=== PATIENT | male | born 1950 | race Two or more races ===

== ENCOUNTER 2025-01-09 01:11 | Inpatient (IN) | payer MEDICARE, OTHER ==
[2025-01-09] VITALS (11 sets, daily range): BP systolic 99–124; BP diastolic 42–65; TEMP 97.4–98.4; O2SAT 81–100
[~2025-01-09] VITALS: Ht 149.9 cm; Wt 50.8 kg
[2025-01-09] MEDS ORDERED: CEFTRIAXONE /D5W 50ML IVPB **ER PYXIS IV ONE (02:26)
[2025-01-09] MEDS ORDERED: AZITHROMYCIN 500MG/ D5W 250ML IVPB **ER PYXIS ONLY IV ONE (02:27)
[2025-01-09 02:29] LABS: BASOPHILS # (AUTO) 0.1 K/UL (0.0-0.2); BASOPHILS % (AUTO) 0.3 % (0.0-2.0); EOSINOPHILS # (AUTO) 0.6 K/uL (0.0-0.7); EOSINOPHILS % (AUTO) 3.7 % (0.0-7.0); HEMATOCRIT 28.3 % (36.7-47.1); HEMOGLOBIN 9.4 g/dL (12.5-16.3); LYMPHOCYTES # (AUTO) 0.8 K/uL (0.8-4.8); LYMPHOCYTES % (AUTO) 4.4 % (20.5-51.5); MEAN CORPUSCULAR HEMOGLOBIN 29.6 uug (23.8-33.4); MEAN CORPUSCULAR HGB CONC 33 g/dL (32.5-36.3); MEAN CORPUSCULAR VOLUME 89.1 fL (73.0-96.2); MONOCYTES # (AUTO) 0.5 K/uL (0.1-1.30); MONOCYTES % (AUTO) 2.8 % (0.0-11.0); NEUTROPHILS # (AUTO) 15.3 K/uL (1.8-8.9); NEUTROPHILS % (AUTO) 88.8 % (38.5-71.5); PLATELET COUNT (AUTO) 119 K/uL (152-348); RED BLOOD CELL COUNT(AUTO) 3.17 MIL/uL (4.06-5.63); RED CELL DISTRIBUTION WIDTH 17.7 % (12.1-16.2); WHITE BLOOD COUNT (AUTO) 17.3 K/uL (3.6-10.2)
[2025-01-09] MEDS: CEFTRIAXONE 1 G in IV DEXTROSE 5% 50 ML IV ONE (02:35)
[2025-01-09 02:36] LABS: DIFFERENTIAL COMMENT 1
[2025-01-09] MEDS: IPRATROPIUM BROMIDE 0.5 MG/2.5 ML NEBU NEB ONE (02:38)
[2025-01-09] MEDS: ALBUTEROL SULFATE 2.5 MG/3 ML NEBU IH ONE (02:38)
[2025-01-09 02:40] LABS: CALCIUM 8.2 mg/dL (8.5-10.1); CARBON DIOXIDE 27 mmol/L (21-32); CHLORIDE 111 mmol/L (98-107); CREATININE 1.5 mg/dL (0.6-1.3); GLUCOSE 153 mg/dL (74-106); POTASSIUM 4.5 mmol/L (3.5-5.1); SODIUM SERUM 146 mmol/L (136-145); UREA NITROGEN, BLOOD 34 mg/dL (7-18)
[2025-01-09] MEDS ORDERED: ALBUTEROL SULFATE 2.5 MG/3 ML NEBU ONE (02:43)
[2025-01-09] MEDS ORDERED: IPRATROPIUM BROMIDE 0.5 MG/2.5 ML NEBU ONE (02:43)
[2025-01-09 02:58] LABS: ALANINE AMINOTRANSFERASE 12 U/L (16-63); ALBUMIN 2.7 g/dL (3.4-5.0); ALKALINE PHOSPHATASE 137 U/L (50-136); ASPARTATE AMINOTRANSFERASE 8 U/L (15-37); BILIRUBIN,DIRECT 0.1 mg/dL (0.0-0.2); BILIRUBIN,TOTAL 0.3 mg/dL (0.2-1.0); NT-PRO BNP 4664 pg/mL (0-125); TOTAL PROTEIN, SERUM 5.6 g/dL (6.4-8.2)
[2025-01-09] MEDS: AZITHROMYCIN IV 500 MG in IV DEXTROSE 5% 250 ML IV ONE (03:07)
[2025-01-09] MEDS ORDERED: ENTA200T3 PEG (03:50)
[2025-01-09] MEDS ORDERED: CARB1TAB31 PO (03:50)
[2025-01-09] MEDS ORDERED: AMLO-212 PEG (03:50)
[2025-01-09] MEDS ORDERED: GABA300T25 PO (03:50)
[2025-01-09] MEDS ORDERED: SELE5CAP8 PEG (03:50)
[2025-01-09] MEDS ORDERED: ACETAMINOPHEN 325 MG TABLET GT PRN (04:30)
[2025-01-09] MEDS ORDERED: REMEDY ESSENTIAL ZINC PASTE 113 GM TP PRN (04:30)
[2025-01-09] MEDS ORDERED: ONDANSETRON 4 MG/2 ML VIAL IV PRN (04:30)
[2025-01-09 06:44] LABS: *BILIRUBIN,URIN NEGATIVE (NEGATIVE); *BLOOD, URINE NEGATIVE (NEGATIVE); *CLARITY,URINE CLEAR (CLEAR); *COLOR,URINE YELLOW (YELLOW); *KETONES,URINE NEGATIVE (NEGATIVE); *PROTEIN,URINE 2+ (NEGATIVE); *UROBILINOGEN,URINE 0.2 E.U./dl (NORMAL); LEUKOCYTE ESTERASE ,URINE NEGATIVE (NEGATIVE); NITRITE, URINE NEGATIVE (NEGATIVE); PH,URINE 5.5 (5.0-8.0); UGLUCOSE NEGATIVE (NEGATIVE)
[2025-01-09 07:08] LABS: MAGNESIUM 2.2 mg/dL (1.8-2.4); PHOSPHOROUS 3.6 mg/dL (2.5-4.9)
[2025-01-09 07:15] LABS: BACTERIA,URINE FEW /HPF (NONE SEEN); SQUAMOUS EPITHELIAL CELL,UR FEW /HPF (NONE SEEN)
[2025-01-09] MEDS ORDERED: SELEGILINE HCL PO SCH (09:00)
[2025-01-09] MEDS ORDERED: Medication Not On Formulary EA (Gabapentin (Gralise) 1 TAB) PO SCH (09:00)
[2025-01-09] MEDS ORDERED: CARBIDOPA/LEVODOPA 10-100MG TABLET GT SCH (09:00)
[2025-01-09] MEDS ORDERED: SELEGILINE HCL 5 MG TABLET GT SCH ×2 (09:00)
[2025-01-09] MEDS: AMLODIPINE 5 MG TABLET GT ONE (09:36)
[2025-01-09] MEDS: GUAIFENESIN/DEXTROMETHORPHAN 5 ML UDC GT PRN (12:57)
[2025-01-09] MEDS: GABAPENTIN 300 MG CAPSULE GT SCH (12:57)
[2025-01-09] MEDS ORDERED: ROTI1PAT TD (13:32)
[2025-01-09] MEDS ORDERED: FINA5TAB11 PEG (13:32)
[2025-01-09] MEDS ORDERED: CARB1TAB21 PEG (13:32)
[2025-01-09] MEDS: ENTACAPONE 200 MG TABLET GT SCH (13:53)
[2025-01-09] MEDS: CARBIDOPA/LEVODOPA 25-100MG TABLET GT SCH (13:53)
[2025-01-09] MEDS ORDERED: FOSF3PAC PEG (15:54)
[2025-01-09] MEDS ORDERED: TAMS-3 PO (15:55)
[2025-01-09] MEDS ORDERED: FERR325T24 PEG (15:56)
[2025-01-09] MEDS ORDERED: METH1TAB69 PEG (15:57)
[2025-01-09] MEDS ORDERED: OMEP40CA21 PEG (15:58)
[2025-01-09] MEDS ORDERED: ALBU2.5V13 NEB (15:59)
[2025-01-09] MEDS ORDERED: GABA300C PEG (16:00)
[2025-01-09] MEDS: AMLODIPINE 5 MG TABLET GT SCH (17:01)
[2025-01-09] MEDS: ALBUTEROL SULFATE 1.25 MG/3 ML NEBU NEB PRN (18:52)
[2025-01-09] MEDS: JEVITY 1.2 1000 ML LIQUID GT SCH (19:27)
[2025-01-09] MEDS ORDERED: PIPERACILLIN/TAZOBACTAM/D5W 50 ML IV ONE ×2 (20:49)
[2025-01-09] MEDS: ACIDOPHILUS/BULGARICUS CHEW TAB GT SCH (21:16)
[2025-01-09] MEDS: PIPERACILLIN SODIUM/TAZOBACTAM 3.375 G in IV DEXTROSE 5% 50 ML IV SCH (21:17)
[2025-01-09] MEDS ORDERED: PIPERACILLIN SODIUM/TAZOBACTAM 3.375 G in IV DEXTROSE 5% 50 ML IV SCH (22:00)
[2025-01-09] MEDS: BISACODYL 10 MG SUPP.RECT RC PRN (22:06)
[2025-01-09] MEDS ORDERED: DOXYCYCLINE HYCLATE IV 100 MG in IV DEXTROSE 5% 100 ML IV SCH (23:00)
[2025-01-10] VITALS (13 sets, daily range): BP systolic 120–134; BP diastolic 41–63; TEMP 97.7–98.4; O2SAT 90–99
[2025-01-10] MEDS ORDERED: CEFTRIAXONE 1 G in IV DEXTROSE 5% 50 ML IV SCH (02:00)
[2025-01-10] MEDS ORDERED: AZITHROMYCIN IV 500 MG in IV DEXTROSE 5% 250 ML IV SCH (03:00)
[2025-01-10 07:02] LABS: BASOPHILS # (AUTO) 0.1 K/UL (0.0-0.2); BASOPHILS % (AUTO) 0.4 % (0.0-2.0); EOSINOPHILS # (AUTO) 0.7 K/uL (0.0-0.7); EOSINOPHILS % (AUTO) 5.3 % (0.0-7.0); HEMATOCRIT 31.2 % (36.7-47.1); HEMOGLOBIN 10.5 g/dL (12.5-16.3); LYMPHOCYTES # (AUTO) 0.5 K/uL (0.8-4.8); LYMPHOCYTES % (AUTO) 3.8 % (20.5-51.5); MEAN CORPUSCULAR HEMOGLOBIN 30.1 uug (23.8-33.4); MEAN CORPUSCULAR HGB CONC 34 g/dL (32.5-36.3); MEAN CORPUSCULAR VOLUME 89.5 fL (73.0-96.2); MONOCYTES # (AUTO) 0.6 K/uL (0.1-1.30); MONOCYTES % (AUTO) 4.6 % (0.0-11.0); NEUTROPHILS # (AUTO) 11.7 K/uL (1.8-8.9); NEUTROPHILS % (AUTO) 85.9 % (38.5-71.5); PLATELET COUNT (AUTO) 153 K/uL (152-348); RED BLOOD CELL COUNT(AUTO) 3.49 MIL/uL (4.06-5.63); RED CELL DISTRIBUTION WIDTH 17.8 % (12.1-16.2); WHITE BLOOD COUNT (AUTO) 13.6 K/uL (3.6-10.2)
[2025-01-10 07:23] LABS: DIFFERENTIAL COMMENT 1
[2025-01-10 07:30] LABS: CALCIUM 8.3 mg/dL (8.5-10.1); CARBON DIOXIDE 27 mmol/L (21-32); CHLORIDE 107 mmol/L (98-107); CREATININE 1.2 mg/dL (0.6-1.3); GLUCOSE 124 mg/dL (74-106); POTASSIUM 4.8 mmol/L (3.5-5.1); SODIUM SERUM 143 mmol/L (136-145); UREA NITROGEN, BLOOD 29 mg/dL (7-18)
[2025-01-10] MEDS: FINASTERIDE 5 MG TABLET PO SCH (09:08)
[2025-01-10] MEDS: GABAPENTIN 300 MG CAPSULE GT SCH (09:08)
[2025-01-10] MEDS: [UNRECOGNIZED DRUG - OTHER] TOP SCH (09:09)
[2025-01-10] MEDS: ROTIGOTINE TOP SCH (09:09)
[2025-01-10] MEDS: [UNRECOGNIZED DRUG - OTHER] GT SCH (12:21)
[2025-01-10] MEDS: SELEGILINE 5 MG GT SCH (12:21)
[2025-01-10 13:02] LABS: BAND % (MANUAL) 3 % (0-10); EOSINOPHILS % (MANUAL) 9 % (0-8); LYMPHOCYTES % (MANUAL) 5 % (20-40); MONOCYTES % (MANUAL) 7 % (2-10); NEUTROPHILS % (MANUAL) 76 % (42-75)
[2025-01-10 13:03] LABS: ANISOCYTOSIS 1+; PLATELET ESTIMATE ADEQUATE
[2025-01-10] MEDS: PIPERACILLIN SODIUM/TAZOBACTAM 3.375 G in IV DEXTROSE 5% 100 ML IV SCH (13:20)
[2025-01-10] MEDS: IPRATROPIUM BROMIDE 0.5 MG/2.5 ML NEBU NEB SCH (15:31)
[2025-01-10] MEDS: ALBUTEROL SULFATE 2.5 MG/ 0.5 ML NEBU NEB SCH (15:32)
[2025-01-10] MEDS: MIRALAX 17 GM POWD.PACK PO SCH (22:40)
[2025-01-11] VITALS (14 sets, daily range): BP systolic 98–135; BP diastolic 45–71; TEMP 97.5–98.2; O2SAT 92–100
[2025-01-11] MEDS: JEVITY 1.2 1000 ML LIQUID GT PRN (05:50)
[2025-01-11 07:26] LABS: BASOPHILS # (AUTO) 0.1 K/UL (0.0-0.2); BASOPHILS % (AUTO) 0.5 % (0.0-2.0); EOSINOPHILS # (AUTO) 0.8 K/uL (0.0-0.7); EOSINOPHILS % (AUTO) 7.3 % (0.0-7.0); HEMATOCRIT 31.2 % (36.7-47.1); HEMOGLOBIN 10.4 g/dL (12.5-16.3); LYMPHOCYTES # (AUTO) 0.5 K/uL (0.8-4.8); MEAN CORPUSCULAR HEMOGLOBIN 29.8 uug (23.8-33.4); MEAN CORPUSCULAR HGB CONC 33 g/dL (32.5-36.3); MEAN CORPUSCULAR VOLUME 89.5 fL (73.0-96.2); MONOCYTES # (AUTO) 0.6 K/uL (0.1-1.30); MONOCYTES % (AUTO) 5.8 % (0.0-11.0); NEUTROPHILS # (AUTO) 8.9 K/uL (1.8-8.9); NEUTROPHILS % (AUTO) 81.4 % (38.5-71.5); PLATELET COUNT (AUTO) 141 K/uL (152-348); RED BLOOD CELL COUNT(AUTO) 3.48 MIL/uL (4.06-5.63); RED CELL DISTRIBUTION WIDTH 17.8 % (12.1-16.2); WHITE BLOOD COUNT (AUTO) 10.9 K/uL (3.6-10.2)
[2025-01-11 07:41] LABS: DIFFERENTIAL COMMENT 1
[2025-01-11 07:45] LABS: CALCIUM 8.9 mg/dL (8.5-10.1); CARBON DIOXIDE 28 mmol/L (21-32); CHLORIDE 105 mmol/L (98-107); CREATININE 1.1 mg/dL (0.6-1.3); GLUCOSE 124 mg/dL (74-106); MAGNESIUM 2.3 mg/dL (1.8-2.4); PHOSPHOROUS 4.5 mg/dL (2.5-4.9); POTASSIUM 4.9 mmol/L (3.5-5.1); SODIUM SERUM 142 mmol/L (136-145); UREA NITROGEN, BLOOD 26 mg/dL (7-18)
[2025-01-11] MEDS ORDERED: TAMSULOSIN HCL 0.4 MG CAP.SR.24H PO SCH (09:00)
[2025-01-11 11:44] LABS: BAND % (MANUAL) 3 % (0-10); EOSINOPHILS % (MANUAL) 11 % (0-8); LYMPHOCYTES % (MANUAL) 4 % (20-40); MONOCYTES % (MANUAL) 7 % (2-10); NEUTROPHILS % (MANUAL) 75 % (42-75)
[2025-01-11 11:45] LABS: ANISOCYTOSIS 1+; PLATELET ESTIMATE DECREASED
[2025-01-12] VITALS (13 sets, daily range): BP systolic 115–135; BP diastolic 54–65; TEMP 97.6–98.3; O2SAT 95–98
[2025-01-12 07:37] LABS: BASOPHILS % (AUTO) 0.4 % (0.0-2.0); EOSINOPHILS # (AUTO) 0.8 K/uL (0.0-0.7); EOSINOPHILS % (AUTO) 11.1 % (0.0-7.0); HEMATOCRIT 30.1 % (36.7-47.1); HEMOGLOBIN 10.1 g/dL (12.5-16.3); LYMPHOCYTES # (AUTO) 0.7 K/uL (0.8-4.8); LYMPHOCYTES % (AUTO) 9.2 % (20.5-51.5); MEAN CORPUSCULAR HEMOGLOBIN 30.1 uug (23.8-33.4); MEAN CORPUSCULAR HGB CONC 34 g/dL (32.5-36.3); MEAN CORPUSCULAR VOLUME 89.5 fL (73.0-96.2); MONOCYTES # (AUTO) 0.5 K/uL (0.1-1.30); MONOCYTES % (AUTO) 6.6 % (0.0-11.0); NEUTROPHILS # (AUTO) 5.5 K/uL (1.8-8.9); NEUTROPHILS % (AUTO) 72.7 % (38.5-71.5); PLATELET COUNT (AUTO) 162 K/uL (152-348); RED BLOOD CELL COUNT(AUTO) 3.37 MIL/uL (4.06-5.63); RED CELL DISTRIBUTION WIDTH 17.5 % (12.1-16.2); WHITE BLOOD COUNT (AUTO) 7.6 K/uL (3.6-10.2)
[2025-01-12 07:46] LABS: ALANINE AMINOTRANSFERASE < 6 U/L (16-63); ALBUMIN 2.6 g/dL (3.4-5.0); ALKALINE PHOSPHATASE 134 U/L (50-136); ASPARTATE AMINOTRANSFERASE 11 U/L (15-37); BILIRUBIN,TOTAL 0.5 mg/dL (0.2-1.0); CARBON DIOXIDE 27 mmol/L (21-32); CHLORIDE 105 mmol/L (98-107); CREATININE 1.2 mg/dL (0.6-1.3); GLUCOSE 127 mg/dL (74-106); PHOSPHOROUS 4.3 mg/dL (2.5-4.9); POTASSIUM 5.2 mmol/L (3.5-5.1); SODIUM SERUM 139 mmol/L (136-145); TOTAL PROTEIN, SERUM 5.7 g/dL (6.4-8.2); UREA NITROGEN, BLOOD 20 mg/dL (7-18)
[2025-01-12 07:47] LABS: DIFFERENTIAL COMMENT 1
[2025-01-13] VITALS: BP 114/51; TEMP 97.6; O2SAT 95
[2025-01-13 04:00] VITALS: BP 127/64; TEMP 97.8; O2SAT 94
[2025-01-13 07:28] VITALS: O2SAT 94
[2025-01-13 07:42] VITALS: O2SAT 98
[2025-01-13 07:45] VITALS: BP 91/58; TEMP 97.6; O2SAT 97
[2025-01-13 10:32] VITALS: BP 127/68; TEMP 97.8; O2SAT 99
[2025-01-13] MEDS ORDERED: ACID1TAB4 GT (12:40)
[2025-01-13] MEDS ORDERED: BISA10SU12 RC (12:40)
[2025-01-13] MEDS ORDERED: AMOX500T2 GT (12:40)
[2025-01-13] MEDS ORDERED: FURO20TA4 GT (12:43)
== END 2025-01-13 14:50 | disposition home health service (06) | DRG 871 ==
LOC: ER 01:19 → TELE3 05:27 → MEDSURG3 01-13 10:42
PROVIDERS: ATTEND Internal Medicine
PROC: 05HC33Z Insertion of Infusion Device into Left Basilic Vein, Percutaneous Approach (ICD-10-PCS; principal; 2025-01-10)
DX: A41.9 Sepsis, unspecified organism (principal); G92.8 Other toxic encephalopathy; J18.9 Pneumonia, unspecified organism; J96.01 Acute respiratory failure with hypoxia; J69.0 Pneumonitis due to inhalation of food and vomit; I50.23 Acute on chronic systolic (congestive) heart failure; N17.0 Acute kidney failure with tubular necrosis; C78.7 Secondary malignant neoplasm of liver and intrahepatic bile duct; C18.9 Malignant neoplasm of colon, unspecified; R64 Cachexia; E44.0 Moderate protein-calorie malnutrition; D68.59 Other primary thrombophilia; D50.0 Iron deficiency anemia secondary to blood loss (chronic); I11.0 Hypertensive heart disease with heart failure; F02.80 Dementia in other diseases classified elsewhere, unspecified severity, without behavioral disturbance, psychotic disturbance, mood disturbance, and anxiety; G20.A1 Parkinson's disease without dyskinesia, without mention of fluctuations; I08.0 Rheumatic disorders of both mitral and aortic valves; Z79.899 Other long term (current) drug therapy; Z93.1 Gastrostomy status; R62.7 Adult failure to thrive; K40.90 Unilateral inguinal hernia, without obstruction or gangrene, not specified as recurrent; E86.0 Dehydration; K59.00 Constipation, unspecified; Z96.82 Presence of neurostimulator; Z95.0 Presence of cardiac pacemaker; N40.0 Benign prostatic hyperplasia without lower urinary tract symptoms; I25.10 Atherosclerotic heart disease of native coronary artery without angina pectoris; R32 Unspecified urinary incontinence
CPT/HCPCS: 36415; 71045; 71250; 74018; 76770; 83605; 83735; 84100; 84484; 85025; 87040; 93005; 93307; 94640; 94760; A6209; A6213; C1758; G0378; J0456; J0696; J2543; J3490; J3590

== ENCOUNTER 2025-08-17 23:41 | Inpatient (IN) | payer MEDICARE, OTHER ==
[~2025-08-17] VITALS: Ht 162.6 cm; Wt 45.8 kg
[2025-08-17] MEDS: IPRATROPIUM BROMIDE 0.5 MG/2.5 ML NEBU NEB ONE (23:30)
[2025-08-17] MEDS: ALBUTEROL SULFATE 2.5 MG/3 ML NEBU NEB ONE (23:30)
[~2025-08-17 23:41] MED LIST: ACID1TAB4 GT; AMLO-212 PEG; AMOX500T2 GT; BISA10SU12 RC; CARB1TAB33 PEG; ENTA200T4 PEG; FINA5TAB11 PEG; FOSF3PAC PEG; FURO20TA4 GT; GABA300C PEG; METH1TAB69 PEG; OMEP40CA21 PEG; ROTI1PAT TD; SELE5CAP8 PEG; TAMS0.4C PO
[2025-08-17] MEDS ORDERED: IPRATROPIUM BROMIDE 0.5 MG/2.5 ML NEBU ONE (23:59)
[2025-08-17] MEDS ORDERED: ALBUTEROL SULFATE 2.5 MG/3 ML NEBU ONE (23:59)
[2025-08-18] VITALS (78 sets, daily range): BP systolic 85–166; BP diastolic 48–98; TEMP 97.1–97.7; O2SAT 99–100
[2025-08-18] MEDS ORDERED: PROPOFOL 100 ML ONE (00:13)
[2025-08-18] MEDS ORDERED: ETOMIDATE 20 MG/10 ML VIAL ONE (00:13)
[2025-08-18] MEDS ORDERED: SUCCINYLCHOLINE CHLORIDE 200 MG/10 ML VIAL ONE (00:13)
[2025-08-18] MEDS: ETOMIDATE 20 MG/10 ML VIAL IV ONE (00:14)
[2025-08-18] MEDS: SUCCINYLCHOLINE CHLORIDE 200 MG/10 ML VIAL IV ONE (00:15)
[2025-08-18 00:24] LABS: PLATELET COUNT (AUTO) 207 K/uL (152-348); RED BLOOD CELL COUNT(AUTO) 3.06 MIL/uL (4.06-5.63); RED CELL DISTRIBUTION WIDTH 15.8 % (12.1-16.2); WHITE BLOOD COUNT (AUTO) 6.0 K/uL (3.6-10.2)
[2025-08-18 00:30] LABS: CREATININE 0.8 mg/dL (0.6-1.3); SODIUM SERUM 140 mmol/L (136-145); UREA NITROGEN, BLOOD 30 mg/dL (7-18)
[2025-08-18 00:36] LABS: ASPARTATE AMINOTRANSFERASE < 5 U/L (15-37); TOTAL PROTEIN, SERUM 6.0 g/dL (6.4-8.2)
[2025-08-18] MEDS: IV NORMAL SALINE 1000 ML BAG IV ONE (00:42)
[2025-08-18] MEDS: PROPOFOL 100 ML IV ONE (01:06)
[2025-08-18] MEDS ORDERED: VANCOMYCIN IV 200 ML ONE (01:09)
[2025-08-18] MEDS ORDERED: PANTOPRAZOLE SODIUM 40 MG VIAL ONE (01:09)
[2025-08-18] MEDS ORDERED: CEFTRIAXONE /D5W 50ML IVPB **ER PYXIS IV ONE (01:09)
[2025-08-18 01:10] LABS: *BILIRUBIN,URIN NEGATIVE (NEGATIVE); *CLARITY,URINE SLIGHTLY CLOUDY (CLEAR); *KETONES,URINE NEGATIVE (NEGATIVE); *PROTEIN,URINE 2+ (NEGATIVE); *UROBILINOGEN,URINE 0.2 E.U./dl (NORMAL); LEUKOCYTE ESTERASE ,URINE 1+ (NEGATIVE); NITRITE, URINE NEGATIVE (NEGATIVE); UGLUCOSE NEGATIVE (NEGATIVE)
[2025-08-18 01:12] LABS: *BLOOD, URINE TRACE (NEGATIVE); *COLOR,URINE DARK YELLOW (YELLOW)
[2025-08-18] MEDS: PANTOPRAZOLE SODIUM IV 80 MG in IV DEXTROSE 5% 100 ML IV ONE (01:27)
[2025-08-18] MEDS: VANCOMYCIN IV 1,000 MG in IV DEXTROSE 5% 250 ML IV ONE (01:27)
[2025-08-18] MEDS ORDERED: IOHEXOL 350 100 ML INFUS..BTL ONE (01:29)
[2025-08-18 01:55] LABS: SQUAMOUS EPITHELIAL CELL,UR FEW /HPF (NONE SEEN); YEAST,URINE FEW /HPF (NONE SEEN)
[2025-08-18] MEDS ORDERED: NOREPINEPHRINE 8MG/NS 250ML 250 ML IV ONE (02:12)
[2025-08-18] MEDS: NOREPINEPHRINE 8MG/NS 250ML 250 ML IV PRN ×2 (02:56→14:36)
[2025-08-18] MEDS ORDERED: ACETAMINOPHEN 325 MG TABLET PO PRN (03:30)
[2025-08-18] MEDS ORDERED: ONDANSETRON 4 MG/2 ML VIAL IV PRN (03:30)
[2025-08-18] MEDS: IV NS 1000 ML 1,000 ML IV PRN (03:58)
[2025-08-18 04:49] LABS: PLATELET COUNT (AUTO) 181 K/uL (152-348); RED BLOOD CELL COUNT(AUTO) 3.39 MIL/uL (4.06-5.63); RED CELL DISTRIBUTION WIDTH 16.3 % (12.1-16.2); WHITE BLOOD COUNT (AUTO) 16.7 K/uL (3.6-10.2)
[2025-08-18] MEDS: PROPOFOL 100 ML IV PRN (04:53)
[2025-08-18 05:00] LABS: CREATININE 0.9 mg/dL (0.6-1.3); SODIUM SERUM 137 mmol/L (136-145); UREA NITROGEN, BLOOD 29 mg/dL (7-18)
[2025-08-18 06:40] LABS: LYMPHOCYTES % (MANUAL) 4 % (20-40); MONOCYTES % (MANUAL) 6 % (2-10); NEUTROPHILS % (MANUAL) 89 % (42-75)
[2025-08-18 06:41] LABS: EOSINOPHILS % (MANUAL) 1 % (0-8); PLATELET ESTIMATE ADEQUATE
[2025-08-18] MEDS: PANTOPRAZOLE SODIUM 40 MG VIAL IV SCH (08:39)
[2025-08-18] MEDS: ENOXAPARIN SODIUM 40 MG/0.4 ML DISP.SYRIN SQ SCH (08:50)
[2025-08-18] MEDS: HYDROCORTISONE SOD SUCCINATE 100 MG/2 ML VIAL IV SCH (08:51)
[2025-08-18] MEDS ORDERED: FERR325T24 PEG (13:14)
[2025-08-18] MEDS ORDERED: CHOL100062 PEG (13:15)
[2025-08-18] MEDS ORDERED: [UNRECOGNIZED DRUG - CODE] TP (13:17)
[2025-08-18] MEDS ORDERED: IPRA42SP BNOSTRILS (13:17)
[2025-08-18] MEDS: ENTACAPONE 200 MG TABLET PEG SCH (13:42)
[2025-08-18] MEDS: CARBIDOPA/LEVODOPA 25-100MG TABLET PEG SCH (13:43)
[2025-08-18 14:56] LABS: HIV-1/2 ANTIBODY NON REACTIVE (NONREACTIVE)
[2025-08-18] MEDS ORDERED: SELEGILINE HCL 5 MG TABLET PEG SCH (17:00)
[2025-08-18] MEDS: VANCOMYCIN HCL 750 MG in IV DEXTROSE 5% 250 ML IV SCH (20:04)
[2025-08-18 20:28] LABS: ABG BASE EXCESS 0.8 mmol/L (-2.0-3.0); ABG HCO3 26.1 mmol/L (21.0-28.0); ABG PCO2 45.1 mmHg (35.0-48.0); ABG PH 7.381 (7.350-7.450); ABG PO2 85.2 mmHg (83.0-108.0); ABG SITE RIGHT FEMORAL; ABG TOTAL HEMOGLOBIN 9.1 G/dL (13.5-17.5); AaDO2 96.2 mmHg; FIO2 100.0 %; PEEP,BG 5.0 cmH20; SET RATE, BG 20.0; VT, ABG 450 mL
[2025-08-18 20:28] LABS: ABG BASE EXCESS -2.6 mmol/L (-2.0-3.0); ABG HCO3 20.9 mmol/L (21.0-28.0); ABG PCO2 31.5 mmHg (35.0-48.0); ABG PH 7.440 (7.350-7.450); ABG PO2 410.7 mmHg (83.0-108.0); ABG SITE LEFT FEMORAL; ABG TOTAL HEMOGLOBIN 10.3 G/dL (13.5-17.5); AaDO2 99.8 mmHg; FIO2 100.0 %; PEEP,BG 5.0 cmH20; SET RATE, BG 20.0; VT, ABG 450 mL
[2025-08-18] MEDS: CEFEPIME HCL 2 GM in IV DEXTROSE 5% 100 ML IV SCH (21:35)
[2025-08-19] VITALS (91 sets, daily range): BP systolic 85–174; BP diastolic 52–114; TEMP 97–98.3; O2SAT 98–100
[2025-08-19] MEDS: DOPamine IV DRIP 400 MG/250ML 250 ML IV PRN (01:34)
[2025-08-19 05:31] LABS: ABG BASE EXCESS -2.3 mmol/L (-2.0-3.0); ABG HCO3 22.0 mmol/L (21.0-28.0); ABG PCO2 36.1 mmHg (35.0-48.0); ABG PH 7.403 (7.350-7.450); ABG PO2 171.0 mmHg (83.0-108.0); ABG SITE RIGHT RADIAL; ABG TOTAL HEMOGLOBIN 10.8 G/dL (13.5-17.5); AaDO2 99.2 mmHg; FIO2 40.0 %; PEEP,BG 5.0 cmH20; SET RATE, BG 20.0; VT, ABG 450 mL
[2025-08-19 05:43] LABS: PLATELET COUNT (AUTO) 220 K/uL (152-348); RED BLOOD CELL COUNT(AUTO) 3.47 MIL/uL (4.06-5.63); RED CELL DISTRIBUTION WIDTH 16.5 % (12.1-16.2); WHITE BLOOD COUNT (AUTO) 13.2 K/uL (3.6-10.2)
[2025-08-19 05:53] LABS: CREATININE 0.7 mg/dL (0.6-1.3); SODIUM SERUM 138 mmol/L (136-145); UREA NITROGEN, BLOOD 24 mg/dL (7-18)
[2025-08-19] MEDS: TAMSULOSIN HCL 0.4 MG CAP.SR.24H PO SCH (08:25)
[2025-08-19] MEDS: FINASTERIDE 5 MG TABLET PEG SCH (08:25)
[2025-08-19] MEDS: IPRATROPIUM BROMIDE 0.5 MG/2.5 ML NEBU NEB SCH (14:09)
[2025-08-19] MEDS: ALBUTEROL SULFATE 2.5 MG/3 ML NEBU NEB SCH (14:09)
[2025-08-20] VITALS (76 sets, daily range): BP systolic 129–161; BP diastolic 52–71; TEMP 96.6–98.4; O2SAT 98–100
[2025-08-20 05:15] LABS: PLATELET COUNT (AUTO) 299 K/uL (152-348); RED BLOOD CELL COUNT(AUTO) 3.60 MIL/uL (4.06-5.63); RED CELL DISTRIBUTION WIDTH 15.8 % (12.1-16.2); WHITE BLOOD COUNT (AUTO) 12.8 K/uL (3.6-10.2)
[2025-08-20 05:39] LABS: CREATININE 0.8 mg/dL (0.6-1.3); SODIUM SERUM 141 mmol/L (136-145); UREA NITROGEN, BLOOD 24 mg/dL (7-18)
[2025-08-20 08:06] LABS: ABG BASE EXCESS -1.3 mmol/L (-2.0-3.0); ABG HCO3 23.5 mmol/L (21.0-28.0); ABG PCO2 39.6 mmHg (35.0-48.0); ABG PH 7.391 (7.350-7.450); ABG PO2 122.2 mmHg (83.0-108.0); ABG SITE RIGHT RADIAL; ABG TOTAL HEMOGLOBIN 11.5 G/dL (13.5-17.5); AaDO2 98.4 mmHg; FIO2 28.0 %
[2025-08-20 22:07] LABS: HEPATITIS B SURFACE AG Negative (Negative)
[2025-08-21] VITALS (99 sets, daily range): BP systolic 65–183; BP diastolic 46–82; TEMP 97–101.6; O2SAT 94–100
[2025-08-21 05:13] LABS: PLATELET COUNT (AUTO) 265 K/uL (152-348); RED BLOOD CELL COUNT(AUTO) 3.56 MIL/uL (4.06-5.63); RED CELL DISTRIBUTION WIDTH 15.9 % (12.1-16.2); WHITE BLOOD COUNT (AUTO) 10.7 K/uL (3.6-10.2)
[2025-08-21 05:35] LABS: CREATININE 0.7 mg/dL (0.6-1.3); SODIUM SERUM 140 mmol/L (136-145); UREA NITROGEN, BLOOD 19 mg/dL (7-18)
[2025-08-21 06:27] LABS: ABG BASE EXCESS -0.9 mmol/L (-2.0-3.0); ABG HCO3 23.7 mmol/L (21.0-28.0); ABG PCO2 39.2 mmHg (35.0-48.0); ABG PH 7.400 (7.350-7.450); ABG PO2 107.0 mmHg (83.0-108.0); ABG SITE RIGHT RADIAL; ABG TOTAL HEMOGLOBIN 11.8 G/dL (13.5-17.5); AaDO2 97.9 mmHg; CPAP,BG 5 cmH20; FIO2 28.0 %; PEEP,BG 5.0 cmH20
[2025-08-21] MEDS ORDERED: DC PROPOFOL ONCE EXTUBATED XX PRN (07:50)
[2025-08-21] MEDS: NOREPINEPHRINE 8MG/NS 250ML 250 ML IV PRN (09:34)
[2025-08-21] MEDS ORDERED: ACETYLCYSTEINE 10% 4ML VIAL NEB SCH (23:30)
[2025-08-22] VITALS (58 sets, daily range): BP systolic 107–166; BP diastolic 57–98; TEMP 97.5–98.2; O2SAT 94–100
[2025-08-22 05:26] LABS: ABG BASE EXCESS 0.6 mmol/L (-2.0-3.0); ABG HCO3 23.7 mmol/L (21.0-28.0); ABG PCO2 32.6 mmHg (35.0-48.0); ABG PH 7.480 (7.350-7.450); ABG PO2 81.2 mmHg (83.0-108.0); ABG SITE RIGHT RADIAL; ABG TOTAL HEMOGLOBIN 10.5 G/dL (13.5-17.5); AaDO2 96.8 mmHg; FIO2 21.0 %; FLOW, BLOOD GAS 0.00 L/min (0.00-30.00)
[2025-08-22 05:30] LABS: PLATELET COUNT (AUTO) 204 K/uL (152-348); RED BLOOD CELL COUNT(AUTO) 3.14 MIL/uL (4.06-5.63); RED CELL DISTRIBUTION WIDTH 15.9 % (12.1-16.2); WHITE BLOOD COUNT (AUTO) 5.7 K/uL (3.6-10.2)
[2025-08-22 05:45] LABS: CREATININE 0.6 mg/dL (0.6-1.3); SODIUM SERUM 144 mmol/L (136-145); UREA NITROGEN, BLOOD 23 mg/dL (7-18)
[2025-08-22] MEDS: HYDROCORTISONE SOD SUCCINATE 100 MG/2 ML VIAL IV SCH (09:13)
[2025-08-22] MEDS: POTASSIUM CHLORIDE 50 ML IV SCH (09:15)
[2025-08-22] MEDS: CEFEPIME (MAXEPIME) 1 G in IV DEXTROSE 5% 50 ML IV SCH (14:22)
[2025-08-22] MEDS: JEVITY 1.2 1000 ML LIQUID GT PRN (19:50)
[2025-08-22] MEDS: ACETYLCYSTEINE 20% 800 MG/4 ML VIAL NEB SCH (21:28)
[2025-08-22] MEDS: MAGNESIUM HYDROXIDE 30 ML LIQUID UDC PO PRN (23:40)
[2025-08-23] VITALS (38 sets, daily range): BP systolic 130–167; BP diastolic 63–77; TEMP 97.6–98.4; O2SAT 96–100
[2025-08-23 04:34] LABS: PLATELET COUNT (AUTO) 190 K/uL (152-348); RED BLOOD CELL COUNT(AUTO) 3.07 MIL/uL (4.06-5.63); RED CELL DISTRIBUTION WIDTH 15.7 % (12.1-16.2); WHITE BLOOD COUNT (AUTO) 4.3 K/uL (3.6-10.2)
[2025-08-23 04:46] LABS: CREATININE 0.7 mg/dL (0.6-1.3); SODIUM SERUM 150 mmol/L (136-145); UREA NITROGEN, BLOOD 24 mg/dL (7-18)
[2025-08-23] MEDS: POTASSIUM CHLORIDE 20 MEQ POWDER PACKET GT SCH (09:06)
[2025-08-23 11:07] LABS: ADENOVIRUS Not Detected (Not Detected); CORONAVIRUS 229E Not Detected (Not Detected); CORONAVIRUS HKU1 Not Detected (Not Detected); CORONAVIRUS NL63 Not Detected (Not Detected); CORONAVIRUS OC43 Not Detected (Not Detected); NP BORDETELLA PERTUSIS Not Detected (Not Detected); NP CHLAMYDOPHILA PNEUMONIAE Not Detected (Not Detected); NP HUMAN METAPNEUMOVIRUS Not Detected (Not Detected); NP HUMAN RHINO/ENTERO VIRUS Not Detected (Not Detected); NP INFLUENZA A Not Detected (Not Detected); NP INFLUENZA A/H1 Not Detected (Not Detected); NP INFLUENZA A/H1-2009 Not Detected (Not Detected); NP INFLUENZA A/H3 Not Detected (Not Detected); NP INFLUENZA B Not Detected (Not Detected); NP MYCOPLASMA PNEUMONIAE Not Detected (Not Detected); NP PARAINFLUENZA 1 Not Detected (Not Detected); NP PARAINFLUENZA 2 Not Detected (Not Detected); NP PARAINFLUENZA 3 Not Detected (Not Detected); NP PARAINFLUENZA 4 Not Detected (Not Detected); NP RESPIRATORY SYNCYTIAL VIRUS Not Detected (Not Detected)
[2025-08-23] MEDS: NEUTRA PHOS PACKET PO ONE (11:48)
[2025-08-23] MEDS: IV 1/2NS 1000 ML 1,000 ML IV PRN (13:57)
[2025-08-23] MEDS ORDERED: MAGNESIUM HYDROXIDE 30 ML LIQUID UDC PEG PRN (15:33)
[2025-08-23] MEDS ORDERED: ACETAMINOPHEN 325 MG TABLET PEG PRN (15:33)
[2025-08-24] VITALS (16 sets, daily range): BP systolic 138–172; BP diastolic 52–76; TEMP 97.4–97.8; O2SAT 94–100
[2025-08-24 07:19] LABS: PLATELET COUNT (AUTO) 204 K/uL (152-348); RED BLOOD CELL COUNT(AUTO) 3.36 MIL/uL (4.06-5.63); RED CELL DISTRIBUTION WIDTH 16.2 % (12.1-16.2); WHITE BLOOD COUNT (AUTO) 4.8 K/uL (3.6-10.2)
[2025-08-24 07:21] LABS: CREATININE 0.6 mg/dL (0.6-1.3); SODIUM SERUM 146 mmol/L (136-145); UREA NITROGEN, BLOOD 23 mg/dL (7-18)
[2025-08-24] MEDS: LOSARTAN POTASSIUM 50 MG TABLET PO SCH (08:21)
[2025-08-24] MEDS: PANTOPRAZOLE ORAL SUSPENSION 40 MG SUSPDR.PKT GT SCH (17:13)
[2025-08-24] MEDS: NEUTRA PHOS PACKET GT ONE (17:16)
[2025-08-24] MEDS: HYDROCORTISONE SOD SUCCINATE 100 MG/2 ML VIAL IV SCH (20:47)
[2025-08-25] VITALS (13 sets, daily range): BP systolic 135–155; BP diastolic 53–93; TEMP 97.6–97.9; O2SAT 97–100
[2025-08-25 07:02] LABS: PLATELET COUNT (AUTO) 188 K/uL (152-348); RED BLOOD CELL COUNT(AUTO) 2.95 MIL/uL (4.06-5.63); RED CELL DISTRIBUTION WIDTH 16.0 % (12.1-16.2); WHITE BLOOD COUNT (AUTO) 4.4 K/uL (3.6-10.2)
[2025-08-25 07:16] LABS: CREATININE 0.5 mg/dL (0.6-1.3); SODIUM SERUM 141 mmol/L (136-145); UREA NITROGEN, BLOOD 22 mg/dL (7-18)
[2025-08-25 09:06] LABS: LYMPHOCYTES % (MANUAL) 17 % (20-40); MONOCYTES % (MANUAL) 8 % (2-10); NEUTROPHILS % (MANUAL) 74 % (42-75)
[2025-08-25 09:07] LABS: EOSINOPHILS % (MANUAL) 1 % (0-8); PLATELET ESTIMATE ADEQUATE
[2025-08-25] MEDS: ENOXAPARIN SODIUM 40 MG/0.4 ML DISP.SYRIN SQ SCH (10:24)
[2025-08-25] MEDS: POTASSIUM CHLORIDE 20 MEQ POWDER PACKET NG ONE (12:30)
[2025-08-25] MEDS: NEUTRA PHOS PACKET GT ONE (17:02)
[2025-08-26] VITALS (12 sets, daily range): BP systolic 98–144; BP diastolic 50–64; TEMP 97.5–98.5; O2SAT 97–100
[2025-08-26 07:27] LABS: PLATELET COUNT (AUTO) 200 K/uL (152-348); RED BLOOD CELL COUNT(AUTO) 3.24 MIL/uL (4.06-5.63); RED CELL DISTRIBUTION WIDTH 16.2 % (12.1-16.2); WHITE BLOOD COUNT (AUTO) 5.1 K/uL (3.6-10.2)
[2025-08-26 07:50] LABS: CREATININE 0.5 mg/dL (0.6-1.3); SODIUM SERUM 141 mmol/L (136-145); UREA NITROGEN, BLOOD 20 mg/dL (7-18)
[2025-08-26] MEDS: LOSARTAN POTASSIUM 50 MG TABLET GT SCH (08:53)
[2025-08-26] MEDS: FUROSEMIDE 40 MG/4 ML VIAL IV ONE ×2 (09:45→18:21)
[2025-08-27] VITALS (12 sets, daily range): BP systolic 124–151; BP diastolic 57–78; TEMP 97.4–98.1; O2SAT 96–100
[2025-08-27 20:16] LABS: *BILIRUBIN,URIN NEGATIVE (NEGATIVE); *BLOOD, URINE NEGATIVE (NEGATIVE); *CLARITY,URINE CLOUDY (CLEAR); *COLOR,URINE YELLOW (YELLOW); *KETONES,URINE TRACE (NEGATIVE); *PROTEIN,URINE 2+ (NEGATIVE); *UROBILINOGEN,URINE 0.2 E.U./dl (NORMAL); LEUKOCYTE ESTERASE ,URINE 1+ (NEGATIVE); NITRITE, URINE NEGATIVE (NEGATIVE); UGLUCOSE NEGATIVE (NEGATIVE)
[2025-08-27 20:54] LABS: CALCIUM OXALATE CRYSTALS,UR MANY /HPF (NONE SEEN); SQUAMOUS EPITHELIAL CELL,UR FEW /HPF (NONE SEEN); YEAST,URINE MANY /HPF (NONE SEEN)
[2025-08-28] MEDS ORDERED: HYDROCORTISONE SOD SUCCINATE 100 MG/2 ML VIAL IV SCH (09:00)
== END 2025-08-27 21:15 | DRG 871 ==
LOC: ER 23:41 → CCU 08-18 01:41 → TELE3 08-23 18:00 → MEDSURG3 08-24 10:25
PROVIDERS: ADMIT Nurse Practitioner Acute Care; ATTEND Internal Medicine
PROC: 5A1945Z Respiratory Ventilation, 24-96 Consecutive Hours (ICD-10-PCS; principal; 2025-08-18)
PROC: 0BH17EZ Insertion of Endotracheal Airway into Trachea, Via Natural or Artificial Opening (ICD-10-PCS; 2025-08-18)
DX: A41.9 Sepsis, unspecified organism (principal); J18.9 Pneumonia, unspecified organism; R65.21 Severe sepsis with septic shock; J69.0 Pneumonitis due to inhalation of food and vomit; J96.01 Acute respiratory failure with hypoxia; C78.7 Secondary malignant neoplasm of liver and intrahepatic bile duct; K92.2 Gastrointestinal hemorrhage, unspecified; G93.40 Encephalopathy, unspecified; R13.10 Dysphagia, unspecified; N39.0 Urinary tract infection, site not specified; C18.9 Malignant neoplasm of colon, unspecified; R64 Cachexia; G20.A1 Parkinson's disease without dyskinesia, without mention of fluctuations; D64.9 Anemia, unspecified; I11.0 Hypertensive heart disease with heart failure; I34.0 Nonrheumatic mitral (valve) insufficiency; E87.0 Hyperosmolality and hypernatremia; Z68.1 Body mass index [BMI] 19.9 or less, adult; Z87.440 Personal history of urinary (tract) infections; Z96.82 Presence of neurostimulator; Z93.1 Gastrostomy status; N40.0 Benign prostatic hyperplasia without lower urinary tract symptoms; K21.9 Gastro-esophageal reflux disease without esophagitis; Z87.01 Personal history of pneumonia (recurrent); Z79.899 Other long term (current) drug therapy; R00.1 Bradycardia, unspecified; T41.295A Adverse effect of other general anesthetics, initial encounter; Y92.230 Patient room in hospital as the place of occurrence of the external cause; N48.89 Other specified disorders of penis; I50.9 Heart failure, unspecified
CPT/HCPCS: 36415; 36600; 70030-TC; 71045; 71275; 76870; 82803; 83605; 83735; 84100; 84484; 85025; 85730; 86803; 87040; 87070; 87086; 87340; 87806; 94002; 94003; 94640; 94664; 94760; 99082-TC; A4606; A4663; A6213; G0378; J0330; J0692; J0696; J1650; J1720; J1938; J1956; J2470; J2919; J3373; J3480; J3490; J3590; J7040; J7050; Q9967